=== PATIENT | female | born 1960 | race Caucasian/White ===

== ENCOUNTER 2018-05-29 12:06 | Inpatient (IN) | payer BC ==
[~2018-05-29] VITALS: Ht 160 cm; Wt 70.1 kg
[2018-05-29 12:09] VITALS: Ht 160 cm; Wt 70.1 kg
[2018-05-29 13:02] LABS: PLATELET COUNT 265 x10^3mcL (130-400); RED CELL DISTRIBUTION WIDTH 13.7 % (11.5-14.5)
[2018-05-29 13:09] LABS: CALCIUM 8.7 mg/dL (8.5-10.1); CARBON DIOXIDE 27.5 mmol/L (21-32); CREATININE SERUM 1.1 mg/dL (0.6-1.0); POTASSIUM SERUM 4.1 mmol/L (3.5-5.1)
[2018-05-29 13:15] LABS: BILIRUBIN TOTAL 0.22 mg/dL (0.20-1.00); TOTAL PROTEIN, SERUM 6.8 g/dL (6.4-8.2)
[2018-05-29 13:16] LABS: ALBUMIN 3.2 g/dL (3.4-5.0)
[2018-05-29 13:23] LABS: FREE T4 1.18 ng/dL (0.76-1.46)
[2018-05-29 13:24] LABS: FREE THYROXINE INDEX 4.1 ug/dL (1.4-4.5); T4(THYROXINE) 14.8 ug/dL (4.7-13.3)
[2018-05-29 13:29] LABS: T3 TOTAL 1.46 ng/mL
[2018-05-29 14:26] LABS: AMPHETAMINE QUAL UR NONE DETECTED (See below)
[2018-05-29 17:53] LABS: CHOLESTEROL/HDL RATIO 2.5; MAGNESIUM 1.9 mg/dL (1.8-2.4)
[2018-05-29 18:09] VITALS: BP 133/73
[2018-05-29 20:44] VITALS: BP 114/67
[2018-05-30] MEDS ORDERED: TRILIPIX135 M1 PO ×3 (01:05→02:17)
[2018-05-30] MEDS ORDERED: INDERAL LA80 MG PO (02:19)
[2018-05-30] MEDS ORDERED: SYNTHROID0.1 MG PO (02:21)
[2018-05-30] MEDS ORDERED: BEYAZ1 TAB PO (02:22)
[2018-05-30] MEDS ORDERED: DHEA PO (02:26)
[2018-05-30 05:03] VITALS: BP 122/69
[2018-05-30 06:36] LABS: CALCIUM 8.7 mg/dL (8.5-10.1); CARBON DIOXIDE 26.9 mmol/L (21-32); CHLORIDE SERUM 106 mmol/L (98-107); CREATININE SERUM 0.9 mg/dL (0.6-1.0); GFR1 > 60 mL/min; GLUCOSE SERUM 85 mg/dL (74-106); POTASSIUM SERUM 4.1 mmol/L (3.5-5.1); SODIUM SERUM 142 mmol/L (136-145)
[2018-05-30 06:40] LABS: BASOPHIL % 0.6 % (0-2); PLATELET COUNT 249 x10^3mcL (130-400); RED CELL DISTRIBUTION WIDTH 13.8 % (11.5-14.5)
[2018-05-30 09:13] VITALS: BP 124/71
[2018-05-30 13:32] VITALS: BP 114/60
[2018-05-30 17:22] VITALS: BP 110/63
[2018-05-30 20:53] VITALS: BP 113/66
[2018-05-31 05:30] VITALS: BP 126/76
[2018-05-31 08:00] VITALS: BP 123/62
[2018-05-31 08:57] VITALS: BP 102/56
[2018-05-31 13:23] VITALS: BP 102/56
[2018-05-31 13:36] VITALS: BP 128/66
[2018-05-31 16:31] VITALS: BP 125/69
[2018-05-31] MEDS ORDERED: METOPROLOL TART25 M1 PO (17:00)
== END 2018-05-31 17:26 | disposition home or self-care (01) | DRG 310 ==
LOC: ED 12:06 → DU 16:58
PROVIDERS: Emergency Medicine; ADMIT Internal Medicine
DX: I47.1 Supraventricular tachycardia (principal); E03.9 Hypothyroidism, unspecified; I25.10 Atherosclerotic heart disease of native coronary artery without angina pectoris; E06.3 Autoimmune thyroiditis; Z79.899 Other long term (current) drug therapy
CPT/HCPCS: 84439; A9500; J0153; J1644; J2785; J7030; Q0092